=== PATIENT | male | born 1965 | race Caucasian/White ===

== ENCOUNTER → 2016-08-09 | Outpatient (CLI) | payer OTHER ==
[~2016-08-09] VITALS: Ht 177.8 cm; Wt 104.8 kg
[~2016-08-09] MED LIST: CATHETER FLUSH 10 ML SYR IV PRN; REGADENOSON 0.4 MG/5 ML SYR (LEXISCAN) IV ONE
--- OUTSIDE RECORDS SUMMARY | 2016-08-09 08:15 | XMS REPORT ---
Author Author TONE AVILA Organization [employer] Address Unknown Phone Unavailable Care Team Providers Care Medical Lab Scientist Name Role Phone TONE AVILA CP Unavailable Allergies No Known Allergies Problems Problem Type Condition Code Onset Dates Condition Status Problem Hypertension, essential I10 Active Problem Tobacco abuse Z72.0 Active Problem Tobacco abuse counseling Z71.6 Active Problem Bilateral thoracic back pain M54.6 Active Problem Scoliosis, congenital Q67.5 Active Problem Essential hypertension with goal blood pressure less than 140\/90 I10 Active Problem Cough R05 Active Problem 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
[2016-08-09 09:33] VITALS: BP 155/91
[2016-08-09 09:37] VITALS: BP 131/74
[2016-08-09 09:39] VITALS: BP 133/80
--- NOTE | 2016-08-10 08:19 | STRESS TEST ---
PROCEDURE PHYSICIAN: DIANA FAJARDO DATE OF PROCEDURE: 08/09/2016 RESTING AND POST REGADENOSON TECHNETIUM 99M TETROFOSMIN SPECT CT IMAGING: ORDERING PHYSICIAN: Deepali Charles APRN PRIMARY PHYSICIAN: Dr. Nava CLINICAL DIAGNOSIS: Exertional chest discomfort. Baseline images were carried out after injection of 10.94 mCi of technetium 99m tetrofosmin. This was followed by 0.4 mg of regadenoson and 33 mCi of technetium 99m tetrofosmin for stress imaging. The electrocardiogram showed sinus rhythm at baseline. It did not change significantly with regadenoson infusion. The patient noted mild shortness of breath after regadenoson infusion, which resolved in a few minutes. Review of images at rest and following stress, does not indicate any significant perfusion defects consistent with myocardial ischemia or infarction. Gated images show normal global left ventricular with normal regional wall motion. Left ventricular ejection fraction is calculated to be 84%. Left ventricular end-diastolic volume is 53 mL. TID is absent (0.9). CONCLUSIONS: 1. No evidence of any significant myocardial ischemia or infarction on this study. 2. Normal regional wall motion. 3. Normal global left ventricular systolic function with a calculated ejection fraction of 84%. 4. Normal left ventricular cavity size. Job ID: [id number] Dictated Date: 08/09/2016 15:19:00 [employer] Machine Operator Date: 08/10/2016 08:15:13 / [email or web address]
== END ==
LOC: CARD 08:13
PROVIDERS: ATTEND Nurse Practitioner Family
DX: R07.9 Chest pain, unspecified (principal)
CPT/HCPCS: 78452; 93017